=== PATIENT | female | born 1975 | race Caucasian/White ===

== ENCOUNTER 2017-07-25 18:24 | Emergency (ER) | payer OTHER ==
[2017-07-25 18:35] VITALS: BP 142/89; BMI 29.8
--- NOTE | 2017-07-25 18:38 | DR.GENAD ---
HPI - PCP Primary Care Physician: Elisa Wong - Complaint/Symptoms Chief Complaint Doctors Comments: She presented with left leg pain, s/p a fall at home. There is no associated head injury or LOC. - Nurses notes reviewed Nurses Notes Review: Yes - Source History Provided: Patient - Mode of Arrival Mode of Arrival: Ambulatory PMH - PMH Past Surgical History: Yes Surgical History: Cholecystectomy - Social History Do you use any recreational Drugs:: No ROS - Review of Systems Constitutional: No Symptoms Reported Eyes: No Symptoms Reported ENTM: No Symptoms Reported Respiratoy: No Symptoms Reported Cardiovascular: No Symptoms Reported Gastrointestinal/Abdominal: No Symptoms Reported Genitourinary: No Symptoms Reported Neurological: No Symptoms Reported Musculoskeletal: Leg (pain, left) Integumentary: Other (laceration to left leg.) Hematologic/Lymphatic: No Symptoms Reported Endocrine: No Symptoms Reported Psychiatric: No Symptoms Reported All Other Systems: Reviewed and Negative PE - Vital Signs Vitals: Temperature 98.6 F Pulse Rate 102 Respiratory Rate 18 Blood Pressure [Left Arm] 162/77 Blood Pressure 142/89 O2 Sat by Pulse Oximetry 100 - General Limitations: No Limitations General Appearance: Alert, In No Apparent Distress - Head Head Exam: Normal Inspection - Eyes Eye exam: Normal Appearance - ENT ENT Exam: Normal Exam - Neck Neck Exam: Normal Inspection - Chest Chest Inspection: Normal Inspection - Respiratory Respiratory Exam: Normal Lung Sounds Bilat - Cardiovascular Cardiovascular Exam: Regular Rate, Normal Rhythm, Normal Heart Sounds, +S1, +S2 - Abdominal Exam Abdominal Exam: Normal Inspection, Normal Bowel Sounds, Soft - Extremities Extremities Exam: Other (A Y shaped laceration on anterior left leg (dobbs).) - Back Back Exam: Other (There is a V shaped laceration on the mid, anterolateral left leg. Bleeding is controled.) - Neurologic Neurological Exam: Alert, Oriented X3 - Psychiatric Psychiatric Exam: Normal Affect, Normal Mood - Skin Skin Exam: Warm, Dry, Normal Color, Other (lacerarion on dobbs as described in extremities section.) Course - Reevaluation 1st: Improved - Education/Counseling Education/Counseling: Patient, Family, Education, Counseling Educated On: Treatment, Diagnosis, Prognosis, Needs for Follow Up ROR - XRAY XRAY Interpreted by: Self (no leg fracture noted.) Procedures - Laceration/Wound Repair Left Leg Wound Length (cm): 9 Wound's Depth, Shape: Superficial, Linear Wound Explored: no foreign body removed Irrigated w/ Saline (ccs): 20 Betadine Prep?: Yes Anesthesia: 1% Lidocaine Volume Anesthetic (ccs): 10 Wound Repaired With: sutures Suture Size/Type: 3:0, Ethilion Number of Sutures: 8 Layer Closure?: No Sterile Dressing Applied?: Yes Splint Applied?: No - Diagnosis Discharge Problem: Laceration of leg not thigh, left - Discharge Plan Disposition: 01 HOME, SELF-CARE Condition: Stable - Follow ups/Referrals Follow ups/Referrals: Jose Alejandro Wong [Primary Care Provider] - 3 days - Instructions Instructions: Laceration Care, Adult, [id number]
--- NOTE | 2017-07-25 19:57 | RAD ---
Two views of the left foreleg. Indication: Laceration after fall. Findings: There is moderate soft tissue swelling with skin laceration and soft tissue gas within the anterior soft tissues of the mid left foreleg. No associated fracture or malalignment of the left for eleg. Ankle and knee joint alignment are grossly anatomic. Impression: Moderate contusion and suspected laceration within the anterior mid left foreleg is consi stent with penetrating trauma; however there is no fracture, dislocation or retained radiopaque forei gn body. Reported By:
[2017-07-25] MEDS ORDERED: XYLOCAINE 1 % (PLAIN) ONE (20:13)
[2017-07-25] MEDS ORDERED: KEFLEX CAP 500 MG PO ONE ×2 (20:49→21:07)
[2017-07-25] MEDS ORDERED: NEOSPORIN OINT ONE (21:07)
== END 2017-07-25 21:15 | disposition home or self-care (01) ==
LOC: ER 18:40
PROC: 0YQJXZZ Repair Left Lower Leg, External Approach (ICD-10-PCS; principal; 2017-07-25)
DX: S81.812A Laceration without foreign body, left lower leg, initial encounter (principal); W19.XXXA Unspecified fall, initial encounter; Y92.009 Unspecified place in unspecified non-institutional (private) residence as the place of occurrence of the external cause
CPT/HCPCS: 12004; 73590; 99282; J2001